=== PATIENT | male | born 1965 | race Caucasian/White ===

== ENCOUNTER 2016-09-27 19:32 | Inpatient (IN) ==
[2016-09-27] MEDS ORDERED: Ipratropium/Albuterol Neb 3 ML IH ONE (19:55)
[2016-09-27] MEDS ORDERED: Ondansetron 4 MG/2 ML VIAL IVP ONE (19:55)
--- NOTE | 2016-09-27 20:01 | Emergency Department Note ---
START Narrative - START START: I examined this patient and my medical decision-making was reviewed with the LICENSED PLUMBER/PA/Advanced Practice Nurse/Resident Physician. I agree with the documented findings, disposition and treatment plan as described except to the extent set forth below.
--- NOTE | 2016-09-27 20:05 | Emergency Department Note ---
Disposition Clinical Impression: Chronic incomplete quadriplegia, Hypoxia Aspiration pneumonia Qualifiers: Aspiration pneumonia type: unspecified Laterality: right Lung location: lower lobe of lung Qualified Code(s): J69.0 - Pneumonitis due to inhalation of food and vomit Disposition: Admitted As Inpatient Condition: Fair Referrals: Nati Giles DO [Primary Care Provider] - Forms: ED Satisfaction Letter General Adult HPI - General Chief complaint: ED Shortness of Breath/Dyspnea Stated complaint: tori Time Seen by Provider: 09/27/16 19:36 Source: patient, EMS Limitations: physical limitation Nursing Notes Reviewed: Yes Vital Signs Reviewed: Yes - History of Present Illness HPI Narrative: 50-year-old male who is an incomplete quadriplegic presents today after aspirating vomit. He has a diagnosis of cyclical vomiting. He says it happens every couple months where he goes in bouts of vomiting and has happened for years. He is treated with Zofran at home. Today when he began to vomit he had difficulty coordinating his swallowing and aspirated some of the vomitus. Since then he has had difficulty with breathing and states he has had noisy respirations. He also states he feels his throat is burning from the inhaled vomit. Past medical history includes hyperlipidemia, hypertension, cyclical vomiting, incomplete quadriplegia. Pain Scale: 0 Consistency: constant Improves with: nothing Worsens with: nothing Associated symptoms: Reports: denies other symptoms Treatments Prior to Arrival: none - Related Data Home Medications Medication Instructions Recorded Confirmed Acidophilus Probiotic Capsule 12/28/14 12/28/14 Baclofen [Lioresal] 20 mg PO TID 12/28/14 12/28/14 Benefiber 12/28/14 12/28/14 Cetirizine HCl [Zyrtec] 10 mg PO DAILY 12/28/14 12/28/14 Cholecalciferol (Vitamin D3) 5,000 unit PO DAILY 12/28/14 12/28/14 [Vitamin D] Enemeez Plus Mini Enema 12/28/14 12/28/14 Ferrous Gluconate 325 mg PO BID 12/28/14 12/28/14 Fluticasone Propionate Nasal 1 spray NS DAILY 12/28/14 12/28/14 [Flonase] Lidocaine Viscous Oral Soln 12/28/14 12/28/14 [Lidocaine Viscous Oral Soln] Morphine Sulfate SR (12 HR) [MS 15 mg PO Q8HR 12/28/14 12/28/14 Contin] Omeprazole [PriLOSEC] 20 mg PO BIDAC 12/28/14 12/28/14 Percocet 10-325 mg Tablet 12/28/14 12/28/14 Ranitidine HCl [Zantac] 150 mg PO BID 12/28/14 12/28/14 Allergies Allergy/AdvReac Type Severity Reaction Status Date / Time No Known Allergies Allergy Verified 09/27/16 19:57 All systems ED: reviewed and negative except as stated. Constitutional: Denies: fever Eyes: Denies: vision change ENT ED: Denies: throat pain Cardiovascular: Reports: dyspnea on exertion. Denies: chest pain Respiratory: Reports: cough, dyspnea Gastrointestinal: Denies: abdominal pain, nausea, vomiting Genitourinary: Denies: dysuria Musculoskeletal: Denies: back pain Neurological: Denies: headache Past Medical History - Past Medical History Medical history: Reports: atrial fibrillation, GERD, hyperlipidemia, hypertension, osteoporosis, other Surgical history: Reports: cholecystectomy, other (lateral internal sphincterotomy, skin and muscle flap to left buttock) Psychiatric history: Reports: no psych history - Social History Smoking Status: Former smoker Alcohol use: Reports: none Drug use: Reports: none Physical Exam - General Limitations: physical limitation General appearance: alert - Head Head exam: atraumatic - Eye Eye exam: Present: normal appearance, PERRL, EOMI - ENT ENT exam: normal exam, normal oropharynx - Neck Neck exam: Present: normal inspection - Chest Chest inspection: Present: normal inspection - Respiratory Respiratory exam: Present: other (Course rhonchi bilaterally. No distress or wheezes) - Cardiovascular Cardiovascular exam: Present: regular rate, normal rhythm - Abdominal Exam Abdominal exam: Present: soft, Non-Tender - Extremities Exam Extremities exam: Present: other (Contracted extremities) - Neurological Exam Neurological exam: Present: alert, oriented X3 - Skin Skin exam: Present: warm, dry Course Course Narrative: 50-year-old incomplete quadriplegic who aspirated vomit today. His vomiting is nonacute has been going on for years. He is mildly hypoxic on arrival at 92%. We will place him on oxygen and give him a breathing treatment. His blood pressure is in the 80s systolic. In looking through his prior blood pressures this is where he has always been. He also states that that is his normal blood pressure and he is not lightheaded or weak. This is likely his baseline but we will monitor this closely. - Reevaluation(s) Reevaluation #1: He has an elevated white count and chest x-ray shows a right lower lobe infiltrate. We will obtain blood cultures and start Unasyn and Flagyl. This been accepted for admission by Dr. Cook. His shortness of breath is significantly improved after breathing treatment. Vital Signs Temperature 97.9 F 09/27/16 19:38 Pulse Rate 91 09/27/16 19:38 Respiratory Rate 18 09/27/16 19:38 Blood Pressure 86/65 09/27/16 19:38 O2 Sat by Pulse Oximetry 92 09/27/16 19:38 Temperature 97.9 F 09/27/16 19:38 Pulse Rate 91 09/27/16 19:38 Respiratory Rate 16 09/27/16 20:23 Blood Pressure 100/81 09/27/16 20:23 O2 Sat by Pulse Oximetry 97 09/27/16 20:23 Oxygen Delivery Oxygen Delivery Room Air Medical Decision Making - Medical Records Medical records reviewed: Yes I reviewed the patient's medical records. - Lab Data Lab results reviewed: Yes I reviewed the patient's lab results. Result diagrams: 09/27/16 20:16 09/27/16 20:16 Lab Results 09/27/16 09/27/16 09/27/16 Range/Units 20:16 20:16 20:16 WBC 18.4 H (4.3-11.1) K/mcL RBC 5.10 (4.19-5.50) M/mcL Hgb 14.1 (12.9-16.9) g/dL Hct 44.4 (37.5-50.1) % MCV 87.1 (83.0-100.0) fL MCH 27.6 L (28.0-33.3) pg MCHC 31.8 (31.6-35.5) g/dL RDW 13.6 (11.5-14.5) % Plt Count 270 (140-400) K/mcL MPV 11.0 (9.4-12.4) fL Immature Gran % 0.4 (0-4) % Seg Neutrophils % 87.3 % Lymphocytes % 6.3 % Monocytes % 5.8 % Eosinophils % 0.0 % Basophils % 0.2 % Neutrophils # 16.0 H (1.6-8.9) K/mcL Lymphocytes # 1.2 (0.6-4.6) K/mcL Monocytes # 1.1 (0.0-1.3) K/mcL Eosinophils # 0.0 (0.0-0.6) K/mcL Basophils # 0.0 (0.0-0.2) K/mcL Sodium 139 (136-145) mEq/L Potassium 3.4 L (3.5-4.5) mEq/L Chloride 105 (98-109) mEq/L Carbon Dioxide 21 (19-29) mEq/L BUN 24 (8-26) mg/dL Creatinine 0.68 L (0.72-1.25) mg/dL Est GFR ( Amer) > 60 (> 60) Est GFR (Non-Af Amer) > 60 (> 60) BUN/Creatinine Ratio 35 H (6-26) Glucose 157 H (70-99) mg/dL Calculated Osmolality 295 (280-300) Lactic Acid 1.5 (0.5-2.2) mmol/L Calcium 9.1 (8.6-10.8) mg/dL - Radiology Data Radiology results reviewed: Yes I reviewed the patient's radiology results. - EKG Data EKG #1 EKG attestation: Yes I reviewed and interpreted this EKG. EKG shows normal: sinus rhythm Rate: normal [place]/QRS: left axis deviation When compared to previous EKG there are: no significant changes Interpretation: no acute changes, unchanged when compared to prior tracing (date )
[2016-09-27 20:23] LABS: Basophils % 0.2 %; Hematocrit 44.4 % (37.5-50.1); Hemoglobin 14.1 g/dL (12.9-16.9); Immature Granulocytes % 0.4 % (0-4); Lymphocytes # 1.2 K/mcL (0.6-4.6); Lymphocytes % 6.3 %; Mean Corpuscular HGB Conc 31.8 g/dL (31.6-35.5); Mean Corpuscular Hemoglobin 27.6 pg (28.0-33.3); Mean Corpuscular Volume 87.1 fL (83.0-100.0); Monocytes # 1.1 K/mcL (0.0-1.3); Monocytes % 5.8 %; Platelet Count 270 K/mcL (140-400); Red Cell Distribution Width 13.6 % (11.5-14.5); Segmented Neutrophils % 87.3 %
[2016-09-27 20:34] LABS: BUN/Creatinine Ratio 35 (6-26); Blood Urea Nitrogen 24 mg/dL (8-26); Calcium 9.1 mg/dL (8.6-10.8); Carbon Dioxide 21 mEq/L (19-29); Chloride 105 mEq/L (98-109); Glucose 157 mg/dL (70-99); Osmolality,Calculated 295 (280-300); Potassium 3.4 mEq/L (3.5-4.5); Sodium 139 mEq/L (136-145); eGFR For African Americans > 60 (> 60); eGFR For Non-African Americans > 60 (> 60)
[2016-09-27] MEDS ORDERED: Ampicillin/Sulbactam 3,000 MG in 0.9 % Sodium Chloride Mini Bag 100 ML IVPB ONE (21:08)
[2016-09-27] MEDS ORDERED: MetroNIDAZOLE 500 MG/100 ML 500 MG/100 ML BAG IVPB ONE (21:08)
[2016-09-27] MEDS ORDERED: *HR* HYDROmorphone (PF) 1 MG/ML SYRINGE IVP ONE (21:31)
[2016-09-27] MEDS ORDERED: Ondansetron 4 MG/2 ML VIAL IVP PRN (22:17)
[2016-09-27] MEDS ORDERED: Naloxone 0.4 MG/ML INJ IVP PRN (22:17)
[2016-09-27] MEDS ORDERED: Acetaminophen 325 MG TABLET PO PRN (22:17)
[2016-09-27] MEDS ORDERED: Ipratropium/Albuterol Neb 3 ML IH PRN (22:20)
--- NOTE | 2016-09-27 22:23 | Internal Med History&Physical ---
Date of Encounter: 09/27/16 Time of Encounter: 22:21 Assessment and Plan (1) Sepsis Current visit: Yes Status: Acute Sepsis secondary to aspiration pneumonia Continue Unasyn, aspiration precautions, blood cultures Continue IV fluids, nothing by mouth, speech pathology consult Protonix IV for GI prophylaxis and subcutaneous heparin for DVT prophylaxis. The patient will be admitted as inpatient, expected to stay more than 2 midnights. Full code. Time spent on this admission 40 minutes High risk of aspiration Qualifiers: Sepsis type: sepsis due to unspecified organism Qualified Code(s): A41.9 - Sepsis, unspecified organism (2) Hypokalemia Current visit: Yes Status: Acute Add potassium to the IV fluids and replete as needed (3) Dehydration Current visit: Yes Status: Acute (4) Intractable vomiting Current visit: Yes Status: Acute Continue Zofran as needed Qualifiers: Vomiting type: cyclical vomiting Nausea presence: with nausea Qualified Code(s): G43.A1 - Cyclical vomiting, intractable (5) Aspiration pneumonia Current visit: Yes Status: Acute Qualifiers: Aspiration pneumonia type: unspecified Laterality: right Lung location: lower lobe of lung Qualified Code(s): J69.0 - Pneumonitis due to inhalation of food and vomit (6) Chronic incomplete quadriplegia Current visit: Yes Status: Acute Internal Medicine - H&P: HPI Chief complaint: Difficulty breathing Admitted From: Emergency Dept History of present illness: Mr. Sawyer is a 50 year old male with a past medical history of quadriplegia secondary to a C6 fracture when he was 12 years old, recurrent UTIs, cyclic vomiting, who presented to the emergency room complaining of shortness of breath as he started vomiting profusely yesterday morning and apparently aspirated. Chest x-ray shows a right lower lobe opacity compatible with pneumonia. Patient says she has been having difficulty coordinating his swallowing and has a vomited constantly since yesterday. His blood pressure was 86/65 but apparently has chronic hypotension. At the time of the examination his heart rate was 122 his blood pressure was in the 120s. His white blood cell count is 18.4 glucose is 157 and potassium is 3.4. Patient denies any other complaint. Feels extremely weak. Denies any sick contacts, has not been hospitalized in the past 90 days. Was started on Unasyn at the emergency room with metronidazole Past Med Surg Social Fam HX - Past Medical History Medical history: atrial fibrillation (Not on anticoagulation), GERD, hyperlipidemia, hypertension, osteoporosis, other (Dysreflexia, sacral decubitus ulcer, recurrent UTI with pansensitive Escherichia coli, quadriplegia with a C6 fracture when he was 12 years old status post cervical stabilization surgery. 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, bladder surgery, cervical stabilization surgery) - Social History Smoking Status: Former smoker Alcohol use: none Drug use: none - Additional Family History Additional family history: Father with hypertension and diabetes Internal Medicine - H&P: Meds Acidophilus Probiotic Capsule 12/28/14 [History] Baclofen [Lioresal] 20 mg PO TID 12/28/14 [History] Benefiber 12/28/14 [History] Cetirizine HCl [Zyrtec] 10 mg PO DAILY 12/28/14 [History] Cholecalciferol (Vitamin D3) [Vitamin D] 5,000 unit PO DAILY 12/28/14 [History] Enemeez Plus Mini Enema 12/28/14 [History] Ferrous Gluconate 325 mg PO BID 12/28/14 [History] Fluticasone Propionate Nasal [Flonase] 1 spray NS DAILY 12/28/14 [History] Lidocaine Viscous Oral Soln [Lidocaine Viscous Oral Soln] 12/28/14 [History] Morphine Sulfate SR (12 HR) [MS Contin] 15 mg PO Q8HR 12/28/14 [History] Omeprazole [PriLOSEC] 20 mg PO BIDAC 12/28/14 [History] Percocet 10-325 mg Tablet 12/28/14 [History] Ranitidine HCl [Zantac] 150 mg PO BID 12/28/14 [History] Allergies No Known Allergies Allergy (Verified 09/27/16 19:57) All Systems PM: A 10-system review of systems was performed and is negative for pertinent findings except as documented above in the HPI. Review of systems: Feels short of breath, other systems out of the 10th reviewed were negative - Constitutional Vitals: Temp Pulse Resp BP Pulse Ox 97.9 F 91 16 100/81 97 09/27/16 19:38 09/27/16 19:38 09/27/16 20:23 09/27/16 20:23 09/27/16 20:23 General appearance: Present: A&O X 3 - Head Head exam: Present: atraumatic, normocephalic - Eye Eye exam: Present: PERRL, conjuntiva pink, sclera anicteric Pupils: Present: PERRL - Neck Neck exam general surgery: Present: supple, trachea midline. Absent: lymphadenopathy - Respiratory Respiratory exam: Present: CTAB, rales (Fine crackles at the right base, no wheezing). Absent: accessory muscle use, rhonchi, wheezes - Cardiovascular Cardiovascular exam: Present: RRR, +S1, +S2, tachycardia. Absent: diastolic murmur, gallop, rubs, systolic murmur - GI/Abdominal GI/Abdominal exam: Present: distended, normal bowel sounds, soft, no peritoneal signs. Absent: tenderness - Extremities Exam Extremities exam: Present: warm, radial pulses palpable and symetrical. Absent : calf tenderness, cyanotic, pedal edema Additional comments: Has partial movement of the upper extremities, lower extremities are atrophied - Neurological Exam Neurological exam: Present: CN II-XII intact, oriented X3. Absent: no focal deficits, pronater drift, facial droop, speech deficit - Skin Skin exam: Present: dry, intact Internal Med - H&P Results - Labs CBC & Chem 7: 09/27/16 20:16 09/27/16 20:16 Labs: Short CBC 09/27/16 Range/Units 20:16 WBC 18.4 H (4.3-11.1) K/mcL Hgb 14.1 (12.9-16.9) g/dL Hct 44.4 (37.5-50.1) % Plt Count 270 (140-400) K/mcL Neutrophils # 16.0 H (1.6-8.9) K/mcL BMP 09/27/16 20:16 Sodium 139 Potassium 3.4 L Chloride 105 Carbon Dioxide 21 BUN 24 Creatinine 0.68 L Glucose 157 H Calcium 9.1 - Impressions ITS Impressions Chest X-Ray 09/27/16 19:56 IMPRESSION: Right lower lobe airspace opacity compatible with pneumonia. D/ / Marcus Guthrie MD / Marcus Guthrie MD Interpreting Provider: Marcus Guthrie MD
[2016-09-27] MEDS ORDERED: 0.9 % Sodium Chloride 1,000 ML IVC SCH (22:30)
[2016-09-27] MEDS ORDERED: Ampicillin/Sulbactam 1,500 MG in 0.9 % Sodium Chloride Mini Bag 100 ML IVPB SCH (23:00)
[2016-09-27] MEDS: *HR* Heparin 5,000 UNIT/ML VIAL SQ SCH (23:57)
[2016-09-27] MEDS: Pantoprazole 40 MG VIAL IVP SCH (23:57)
[2016-09-28] MEDS: *HR* Morphine Sulfate SR (12 HR) 15 MG TABLET.ER PO SCH ×2 (00:15→09:20)
[2016-09-28] MEDS: Ampicillin/Sulbactam 1,500 MG in 0.9 % Sodium Chloride Mini Bag 100 ML IVPB SCH ×4 (04:35→22:17)
[2016-09-28] MEDS: *HR* Morphine 2 MG/ML SYRINGE IVP PRN ×2 (05:12→11:44)
[2016-09-28 05:30] LABS: Hematocrit 43.3 % (37.5-50.1); Hemoglobin 13.5 g/dL (12.9-16.9); Mean Corpuscular HGB Conc 31.2 g/dL (31.6-35.5); Mean Corpuscular Hemoglobin 27.2 pg (28.0-33.3); Mean Corpuscular Volume 87.3 fL (83.0-100.0); Mean Platelet Volume 11.2 fL (9.4-12.4); Platelet Count 280 K/mcL (140-400); Red Blood Count 4.96 M/mcL (4.19-5.50); Red Cell Distribution Width 13.7 % (11.5-14.5)
[2016-09-28 05:39] LABS: BUN/Creatinine Ratio 32 (6-26); Blood Urea Nitrogen 19 mg/dL (8-26); Calcium 8.7 mg/dL (8.6-10.8); Carbon Dioxide 22 mEq/L (19-29); Chloride 108 mEq/L (98-109); Glucose 134 mg/dL (70-99); Osmolality,Calculated 296 (280-300); Potassium 3.4 mEq/L (3.5-4.5); Sodium 141 mEq/L (136-145); eGFR For African Americans > 60 (> 60); eGFR For Non-African Americans > 60 (> 60)
[2016-09-28] MEDS: Pantoprazole 40 MG VIAL IVP SCH (08:21)
[2016-09-28] MEDS: Baclofen 10 MG TABLET PO SCH ×3 (09:20→22:17)
[2016-09-28] MEDS: *HR* Heparin 5,000 UNIT/ML VIAL SQ SCH ×3 (10:16→22:26)
--- NOTE | 2016-09-28 11:38 | Internal Med Progress Note ---
Date of Encounter: 09/28/16 Time of Encounter: 07:50 - Assessment and plan (1) Aspiration pneumonia Current Visit: Yes Status: Acute Assessment and plan: on Unasyn. WBC count is slightly better compared to last night. We will continue IV antibiotics. Moderate risk for complications. Qualifiers: Aspiration pneumonia type: unspecified Laterality: right Lung location: lower lobe of lung Qualified Code(s): J69.0 - Pneumonitis due to inhalation of food and vomit (2) Chronic incomplete quadriplegia Current Visit: Yes Status: Chronic Assessment and plan: Continue baclofen for contractures. Decubitus ulcer prophylaxis. (3) Dehydration Current Visit: Yes Status: Acute Assessment and plan: IV hydration. (4) Hypokalemia Current Visit: Yes Status: Acute Assessment and plan: Potassium remains 3.4. We will continue to replete. (5) Intractable vomiting Current Visit: Yes Status: Acute Assessment and plan: Patient remains nauseated. Continue Zofran. We will add Phenergan with nausea is not controlled. Qualifiers: Vomiting type: cyclical vomiting Nausea presence: with nausea Qualified Code(s): G43.A1 - Cyclical vomiting, intractable (6) Sepsis Current Visit: Yes Status: Acute Assessment and plan: From aspiration pneumonia. Improving clinically. Lactic acid is normal. Follow culture results. Qualifiers: Sepsis type: sepsis due to unspecified organism Qualified Code(s): A41.9 - Sepsis, unspecified organism - Subjective Interval history: Patient is awake and alert. Feels much better today. Denies any chest pain. Shortness of breath is improving. No fever overnight. - Constitutional Vitals: Temp Pulse Resp BP Pulse Ox 98.5 F 73 18 95/61 96 09/28/16 11:11 09/28/16 11:11 09/28/16 11:11 09/28/16 11:11 09/28/16 11:11 General appearance: Present: cooperative, mild distress, A&O X 3, answers questions appropriately - Eye Eye exam: Present: EOMI, PERRL, conjuntiva pink, sclera anicteric - Neck Neck exam general surgery: Present: supple, trachea midline. Absent: lymphadenopathy - Respiratory Respiratory exam: Present: CTAB. Absent: accessory muscle use, rales, rhonchi, wheezes - Cardiovascular Cardiovascular exam: Present: RRR, +S1, +S2. Absent: diastolic murmur, gallop, rubs, systolic murmur - GI/Abdominal GI/Abdominal exam: Present: normal bowel sounds, soft, no peritoneal signs. Absent: distended, tenderness - Extremities Exam Extremities exam: Present: warm, radial pulses palpable and symetrical. Absent : calf tenderness, cyanotic, pedal edema - Neurological Exam Neurological exam: Present: alert, oriented X3. Absent: facial droop, speech deficit Additional comments: Quadriplegia - Skin Skin exam: Present: dry, intact Internal Medicine: Result - Labs CBC & Chem 7: 09/28/16 04:50 09/28/16 04:50 Labs: Short CBC 09/28/16 Range/Units 04:50 WBC 17.4 H (4.3-11.1) K/mcL Hgb 13.5 (12.9-16.9) g/dL Hct 43.3 (37.5-50.1) % Plt Count 280 (140-400) K/mcL BMP 09/28/16 04:50 Sodium 141 Potassium 3.4 L Chloride 108 Carbon Dioxide 22 BUN 19 Creatinine 0.59 L Glucose 134 H Calcium 8.7 Consult Discharge Plan - Plan Referrals: Nati Giles DO [Primary Care Provider] - (web request..) - Attending Attestation This document has been at least partially created by [employer] recognition technology by Dr. Higginbotham. Errors in grammar, wording or other phrases may exist. If errors are found after the documentation is signed, they will be addressed individually in the addendum section of this document when appropriate.
[2016-09-28] MEDS: Ondansetron 4 MG/2 ML VIAL IVP PRN ×2 (11:50→22:25)
[2016-09-28] MEDS ORDERED: *HR* Promethazine 25 MG/ML VIAL IVP PRN (14:56)
[2016-09-28] MEDS: *HR* OxyCODONE/APAP 10/325 TABLET PO PRN ×2 (15:47→22:26)
[2016-09-28] MEDS ORDERED: Temazepam 15 MG CAPSULE PO SCH (23:45)
[2016-09-29] MEDS: Ampicillin/Sulbactam 1,500 MG in 0.9 % Sodium Chloride Mini Bag 100 ML IVPB SCH (03:38)
[2016-09-29] MEDS: *HR* OxyCODONE/APAP 10/325 TABLET PO PRN ×2 (03:44→08:39)
[2016-09-29 04:26] LABS: Basophils % 0.3 %; Hematocrit 34.3 % (37.5-50.1); Immature Granulocytes % 0.2 % (0-4); Lymphocytes # 2.5 K/mcL (0.6-4.6); Mean Corpuscular Hemoglobin 27.2 pg (28.0-33.3); Mean Corpuscular Volume 90.5 fL (83.0-100.0); Mean Platelet Volume 10.7 fL (9.4-12.4); Monocytes # 0.7 K/mcL (0.0-1.3); Monocytes % 7.8 %; Platelet Count 203 K/mcL (140-400); Red Blood Count 3.79 M/mcL (4.19-5.50); Red Cell Distribution Width 13.9 % (11.5-14.5); Segmented Neutrophils % 64.7 %
[2016-09-29 04:27] LABS: Hemoglobin 10.3 g/dL (12.9-16.9)
[2016-09-29 04:42] LABS: BUN/Creatinine Ratio 29 (6-26); Blood Urea Nitrogen 14 mg/dL (8-26); Calcium 7.9 mg/dL (8.6-10.8); Carbon Dioxide 26 mEq/L (19-29); Chloride 111 mEq/L (98-109); Glucose 94 mg/dL (70-99); Osmolality,Calculated 292 (280-300); Potassium 3.7 mEq/L (3.5-4.5); Sodium 141 mEq/L (136-145); eGFR For African Americans > 60 (> 60); eGFR For Non-African Americans > 60 (> 60)
[2016-09-29 07:47] VITALS: BP 91/53
[2016-09-29] MEDS ORDERED: *HR* Promethazine 25 MG/ML VIAL IVP PRN (08:30)
[2016-09-29] MEDS: Pantoprazole 40 MG VIAL IVP SCH (08:37)
[2016-09-29] MEDS: Baclofen 10 MG TABLET PO SCH (08:38)
[2016-09-29] MEDS: *HR* Heparin 5,000 UNIT/ML VIAL SQ SCH (08:38)
--- NOTE | 2016-09-29 09:26 | Discharge Summary ---
Date of Encounter: 09/29/16 Time of Encounter: 08:10 - Discharge Diagnosis (1) Aspiration pneumonia Priority: Primary Status: Acute Qualifiers: Aspiration pneumonia type: unspecified Laterality: right Lung location: lower lobe of lung Qualified Code(s): J69.0 - Pneumonitis due to inhalation of food and vomit (2) Chronic incomplete quadriplegia Priority: Secondary Status: Chronic (3) Dehydration Priority: Secondary Status: Acute (4) Hypokalemia Priority: Secondary Status: Acute (5) Intractable vomiting Priority: Secondary Status: Acute Qualifiers: Vomiting type: cyclical vomiting Nausea presence: with nausea Qualified Code(s): G43.A1 - Cyclical vomiting, intractable (6) Sepsis Priority: Secondary Status: Acute Qualifiers: Sepsis type: sepsis due to unspecified organism Qualified Code(s): A41.9 - Sepsis, unspecified organism (7) Sacral decubitus ulcer, stage II Priority: Secondary Status: Chronic Comments: Present on admission. Wound care provided - Discharge Medications Prescriptions: Amoxicillin/Clavulanate [Augmentin] 875 mg PO BIDWM #20 tablet Lactobacillus [Culturelle] 1 each PO BID #20 cap.sprink Home Medications: Baclofen [Lioresal] 20 mg PO TID 12/28/14 [History] Cetirizine HCl [Zyrtec] 10 mg PO DAILY 12/28/14 [History] Cholecalciferol (Vitamin D3) [Vitamin D3] 5,000 unit PO DAILY 12/28/14 [History] Docusate Sodium/Benzocaine [Enemeez Plus Mini Enema] 5 ml RC MOTH 12/28/14 [ History] Ferrous Gluconate 325 mg PO BID 12/28/14 [History] Fluticasone Propionate Nasal [Flonase] 1 spray NS DAILY PRN 12/28/14 [History] Lidocaine Viscous Oral Soln 15 ml PO 2XW 12/28/14 [History] Morphine Sulfate SR (12 HR) [MS Contin] 15 mg PO Q8HR 12/28/14 [History] Omeprazole [PriLOSEC] 20 mg PO BIDAC 12/28/14 [History] Oxycodone HCl/Acetaminophen [Percocet 10-325 mg Tablet] 1 tab PO QID 12/28/14 [ History] Ranitidine HCl [Zantac] 150 mg PO BID 12/28/14 [History] Wheat Dextrin [Benefiber] 1 pack PO SUWE 12/28/14 [History] Docusate Sodium [Dok] 200 mg PO BID 09/28/16 [History] Simvastatin [Zocor] 20 mg PO HS 09/28/16 [History] Temazepam [Restoril] 30 mg PO HS 09/28/16 [History] diazePAM [Valium] 2 mg PO HS 09/28/16 [History] Amoxicillin/Clavulanate [Augmentin] 875 mg PO BIDWM #20 tablet 09/29/16 [Rx] Lactobacillus [Culturelle] 1 each PO BID #20 cap.sprink 09/29/16 [Rx] Allergies/Adverse Reactions: Allergies No Known Allergies Allergy (Verified 09/27/16 19:57) Date of admission: 09/27/16 22:32 Primary care physician: Nati Giles DO Consults: 09/28/16 09:30 Consult to Wound Care [CONS] Routine Reason for Consult: pressure injury Call Completed: No Discharging clinician: Lenny Higginbotham Anticipated date of discharge: 09/29/16 - Patient Status Disposition: Home Health Service Condition: Good Functional capacity at discharge: wheelchair bound Overall status at discharge: patient is progressing back to baseline - Discharge Instructions Instructions: Amoxicillin/Clavulanate Potassium (By mouth), Probiotic (By mouth ), Sepsis (DC), Pneumonia (DC) Follow Up With: Nati Giles DO [Primary Care Provider] - (web request..) - Diet and Activity Activity: increase activity as tolerated Diet: regular diet Hospital course: Mr. Sawyer is a 50 year old male with history of chronic incomplete quadriplegia was admitted here with aspiration pneumonia and sepsis. Patient had been having intractable nausea and vomiting and then developed aspiration pneumonia. He was treated with IV Unasyn with significant improvement in his symptoms. His nausea and vomiting has also subsided. He was evaluated by speech therapy and recommended a regular diet. His leukocytosis has resolved. Sepsis has also resolved. Patient has chronic hypotension without any tachycardia. He is not requiring any O2 supplementation. He will be discharged on Augmentin to complete treatment course due to his good response to Unasyn. - Time Spent with Patient Total time spent providing and/or coordinating discharge services: Less than 30 minutes (25 min) - Constitutional Vitals: Temp Pulse Resp BP Pulse Ox 98.5 F 70 15 91/53 94 09/29/16 07:00 09/29/16 07:00 09/29/16 07:00 09/29/16 07:00 09/29/16 07:00 General appearance: Present: cooperative, A&O X 3, no acute distress, answers questions appropriately - Neck Neck exam general surgery: Present: supple, trachea midline. Absent: lymphadenopathy - Respiratory Respiratory exam: Absent: accessory muscle use, rales, rhonchi, wheezes Additional comments: Coarse breath sounds bilaterally - Cardiovascular Cardiovascular exam: Present: RRR, +S1, +S2. Absent: diastolic murmur, gallop, rubs, systolic murmur - Neurological Exam Neurological exam: Present: alert, oriented X3. Absent: facial droop, speech deficit Additional comments: Decreased strength in all 4 extremities with contractures - Attending Attestation This document has been at least partially created by [email or web address] voice recognition technology by Dr. Higginbotham. Errors in grammar, wording or other phrases may exist. If errors are found after the documentation is signed, they will be addressed individually in the addendum section of this document when appropriate.
--- NOTE | 2016-09-29 09:29 | Physician Discharge Referral ---
Home Health/Hosp Referral Info Transfer to: Home Health Provider in Charge Post Discharge: PCP - Diagnosis (1) Aspiration pneumonia Priority: Primary Status: Acute (2) Chronic incomplete quadriplegia Priority: Secondary Status: Chronic (3) Dehydration Priority: Secondary Status: Acute (4) Hypokalemia Priority: Secondary Status: Acute (5) Intractable vomiting Priority: Secondary Status: Acute (6) Sepsis Priority: Secondary Status: Acute - Respiratory Orders Smoking Cessation: Smoking cessation has been advised. For more information, call the [place] Tobacco Quit Line at 0-952-NUEA-NOW. - Diet/Nutrition Diet/Nutrition Orders: Regular - Activity Activity Orders: Chair - Services Needed Following services are medically necessary services: Nursing, Home Health Aide, Physical Therapy, Occupational Therapy - Transfer Medications Prescriptions: Amoxicillin/Clavulanate [Augmentin] 875 mg PO BIDWM #20 tablet Lactobacillus [Culturelle] 1 each PO BID #20 cap.sprink Home Medications: Baclofen [Lioresal] 20 mg PO TID 12/28/14 [History] Cetirizine HCl [Zyrtec] 10 mg PO DAILY 12/28/14 [History] Cholecalciferol (Vitamin D3) [Vitamin D3] 5,000 unit PO DAILY 12/28/14 [History] Docusate Sodium/Benzocaine [Enemeez Plus Mini Enema] 5 ml RC MOTH 12/28/14 [ History] Ferrous Gluconate 325 mg PO BID 12/28/14 [History] Fluticasone Propionate Nasal [Flonase] 1 spray NS DAILY PRN 12/28/14 [History] Lidocaine Viscous Oral Soln 15 ml PO 2XW 12/28/14 [History] Morphine Sulfate SR (12 HR) [MS Contin] 15 mg PO Q8HR 12/28/14 [History] Omeprazole [PriLOSEC] 20 mg PO BIDAC 12/28/14 [History] Oxycodone HCl/Acetaminophen [Percocet 10-325 mg Tablet] 1 tab PO QID 12/28/14 [ History] Ranitidine HCl [Zantac] 150 mg PO BID 12/28/14 [History] Wheat Dextrin [Benefiber] 1 pack PO SUWE 12/28/14 [History] Docusate Sodium [Dok] 200 mg PO BID 09/28/16 [History] Simvastatin [Zocor] 20 mg PO HS 09/28/16 [History] Temazepam [Restoril] 30 mg PO HS 09/28/16 [History] diazePAM [Valium] 2 mg PO HS 09/28/16 [History] Amoxicillin/Clavulanate [Augmentin] 875 mg PO BIDWM #20 tablet 09/29/16 [Rx] Lactobacillus [Culturelle] 1 each PO BID #20 cap.sprink 09/29/16 [Rx] Allergies/Adverse Reactions: Allergies No Known Allergies Allergy (Verified 09/27/16 19:57) Certification: Further, I certify that my clinical findings support that this patient is homebound (i.e. absences from home require considerable and taxing effort and are for medical reasons or confucianism services or infrequently or short duration when for other reasons) because: Homebound Reason: Patient requires assistance of a person or device to safely leave home, Leaving home requires considerable and taxing effort due to condition Attestation: My signature below is to certify that this patient is under my care and that I, or nurse practitioner, or a physician's case management assistant working with me, has a face-to -face encounter with this patient.
--- NOTE | 2016-09-29 09:52 | Electrocardiograph Report ---
[place] [id number] Test Date: 2016-09-27 Pat Name: Junior Sawyer Department: [id number] Room: 2A14 Gender: M Newspaper Correspondent: : [id number] Requested By: Ankur Messina Order Number: [id number] Reading MD: Mega Zamudio MD Measurements Intervals [place] Rate: 87 P: 47 [place]: 145 QRS: -59 QRSD: 90 T: 68 QT: 370 QTc: 414 Interpretive Statements SINUS RHYTHM LEFT ANTERIOR FASCICULAR BLOCK Electronically Signed On 09-29-2016 9:50:34 EDT by Mega Zamudio MD
[2016-09-29] MEDS ORDERED: Ipratropium/Albuterol Neb 3 ML IH SCH (12:00)
== END 2016-09-29 10:40 | disposition home health service (06) | DRG 720 ==
LOC: EMEROO 19:32 → 2ANU 22:32
PROVIDERS: ADMIT Internal Medicine; ATTEND Internal Medicine

== ENCOUNTER 2020-02-16 12:27 | Inpatient (IN) ==
[2020-02-16] MEDS ORDERED: CeFAZolin Syr 2,000MG/20 ML 2,000 MG/20 ML SYRINGE IVPB ONE (13:39)
[2020-02-16] MEDS ORDERED: *HR* OxyCODONE Immed Rel 5 MG TABLET PO PRN (13:53)
[2020-02-16] MEDS ORDERED: Acetaminophen IV 1,000 MG/100 ML INFUS..BTL IVPB ONE (13:53)
[2020-02-16] MEDS ORDERED: *HR* HYDROmorphone (PF) 1 MG/ML SYRINGE IVP PRN (13:53)
[2020-02-16] MEDS ORDERED: *HR* Labetalol 20 MG/4 ML SYRINGE IVP PRN (13:53)
[2020-02-16] MEDS ORDERED: Famotidine 20 MG/2 ML VIAL IVP ONE (13:53)
[2020-02-16] MEDS ORDERED: Pregabalin 75 MG CAPSULE PO ONE (13:53)
[2020-02-16] MEDS ORDERED: *HR* HYDROmorphone 2 MG TABLET PO PRN (13:53)
[2020-02-16 14:04] LABS: Adenovirus Not Detected (Not Detect); Bordetella Pertussis Not Detected (Not Detect); Chlamydophila pneumoniae Not Detected (Not Detect); Coronavirus 229E Not Detected (Not Detect); Coronavirus HKU1 Not Detected (Not Detect); Coronavirus NL63 Not Detected (Not Detect); Coronavirus OC43 Not Detected (Not Detect); Human Metapneumovirus Not Detected (Not Detect); Human Rhinovirus/Enterovirus Not Detected (Not Detect); Influenza A Subtype 2009 H1 Not Detected (Not Detect); Influenza B Not Detected (Not Detect); Mycoplasma pneumoniae Not Detected (Not Detect); Parainfluenza Virus 1 Not Detected (Not Detect); Parainfluenza Virus 2 Not Detected (Not Detect); Parainfluenza Virus 3 Not Detected (Not Detect); Parainfluenza Virus 4 Not Detected (Not Detect); Respiratory Syncytial Virus Not Detected (Not Detect); SARS-CoV-2 Not Detected (Not Detect)
[2020-02-16] MEDS ORDERED: *HR* FentaNYL (PF) 100 MCG/2 ML VIAL ONE ×2 (14:40→16:20)
[2020-02-16] MEDS ORDERED: *HR* Propofol 200 MG/20 ML VIAL IVP ONE (14:40)
[2020-02-16] MEDS ORDERED: *HR* Succinylcholine 200 MG/10 ML VIAL IVP ONE (14:40)
[2020-02-16] MEDS ORDERED: Lidocaine -MPF 2% 2 ML VIAL ONE (14:40)
[2020-02-16] MEDS ORDERED: *HR* Midazolam HCl 2 MG/2 ML VIAL ONE (14:40)
[2020-02-16] MEDS ORDERED: Dexamethasone 4 MG/ML VIAL ONE (14:40)
[2020-02-16] MEDS ORDERED: *HR* Rocuronium Bromide 50 MG/5 ML VIAL ONE (14:40)
[2020-02-16] MEDS ORDERED: Ondansetron 4 MG/2 ML VIAL ONE (14:40)
[2020-02-16] MEDS ORDERED: Lidocaine HCL 4 ML Topical Solution (Laryng-O-Jet Kit Sterile Pak) TP ONE (14:41)
[2020-02-16] MEDS ORDERED: Ethanol\\Acetic Acid\\Na Ace\\Ben 1,000 ML IRRIG.SOLN IR ONE (14:42)
[2020-02-16] MEDS ORDERED: Vancomycin 1,000 MG VIAL ONE (14:42)
[2020-02-16] MEDS ORDERED: Ropivacaine/PF 0.5% 30 ML VIAL ONE (14:45)
[2020-02-16] MEDS: Ringers Solution, Lactated 1,000 ML IVC SCH ×2 (14:49→18:18)
[2020-02-16] MEDS ORDERED: NiCARdipine 2.5 MG/10 ML Syringe IVPB ONE (15:36)
[2020-02-16] MEDS ORDERED: Albumin Human 5% 12.5 GM/250 ML IV.SOLN ONE (15:36)
[2020-02-16] MEDS ORDERED: EPHEDrine 50 MG/ML VIAL ONE (16:18)
[2020-02-16] MEDS ORDERED: Povidone-Iodine 45 ML, Sodium Chloride IRRigation 1,000 ML IR ONE (16:20)
[2020-02-16] MEDS ORDERED: *HR* Enoxaparin 30 MG/0.3 ML SYRINGE SQ SCH (18:00)
[2020-02-16 18:26] LABS: Hematocrit 36.1 % (37.5-50.1); Hemoglobin 11.3 g/dL (12.9-16.9)
[2020-02-16] MEDS ORDERED: Ondansetron 4 MG/2 ML VIAL IVP PRN (19:18)
[2020-02-16] MEDS ORDERED: Ringers Solution, Lactated 1,000 ML IVC SCH (19:18)
[2020-02-16] MEDS ORDERED: MOM Conc 10 ML UD.LIQ PO PRN (19:18)
[2020-02-16] MEDS ORDERED: Dextrose Gel 15 GM/37.5 ML TUBE PO PRN ×2 (19:18)
[2020-02-16] MEDS ORDERED: *HR* OxyCODONE/APAP 5/325 TABLET PO PRN (19:18)
[2020-02-16] MEDS ORDERED: D5% in Water 1,000 ML IVC PRN (19:18)
[2020-02-16] MEDS ORDERED: Naloxone 0.4 MG/ML INJ IVP PRN (19:18)
[2020-02-16] MEDS ORDERED: Sennosides 8.6 MG TABLET PO PRN (19:18)
[2020-02-16] MEDS ORDERED: *HR* Dextrose 50 % in Water (Vial) 50 ML VIAL IVP PRN (19:18)
[2020-02-16] MEDS: Insulin LISPRO 300 UNITS/3 ML VIAL SQ SCH (20:33)
[2020-02-16] MEDS ORDERED: Insulin LISPRO 300 UNITS/3 ML VIAL SQ SCH (21:00)
[2020-02-16] MEDS ORDERED: Temazepam 15 MG CAPSULE PO SCH (21:15)
[2020-02-16] MEDS: *HR* OxyCODONE Immed Rel 5 MG TABLET PO PRN (22:08)
[2020-02-16] MEDS: Baclofen 10 MG TABLET PO SCH (22:09)
[2020-02-17] MEDS: CeFAZolin 2 GM/120 ML BAG IVPB SCH ×2 (00:27→07:59)
[2020-02-17 05:41] LABS: Hematocrit 35.3 % (37.5-50.1); Hemoglobin 10.6 g/dL (12.9-16.9)
[2020-02-17] MEDS ORDERED: *HR* Enoxaparin 30 MG/0.3 ML SYRINGE SQ SCH (06:00)
[2020-02-17 06:03] LABS: BUN/Creatinine Ratio 33 (6-26); Blood Urea Nitrogen 17 mg/dL (6-20); Calcium 8.4 mg/dL (8.6-10.3); Carbon Dioxide 27 mEq/L (23-29); Chloride 103 mEq/L (98-107); Glucose 159 mg/dL (70-105); Osmolality,Calculated 291 (280-300); Sodium 138 mEq/L (136-145); eGFR For African Americans > 60 (> 60); eGFR For Non-African Americans > 60 (> 60)
[2020-02-17 07:10] VITALS: BP 130/52
[2020-02-17] MEDS: *HR* OxyCODONE Immed Rel 5 MG TABLET PO PRN ×2 (07:38→11:41)
[2020-02-17] MEDS: Baclofen 10 MG TABLET PO SCH (07:38)
[2020-02-17] MEDS: Insulin LISPRO 300 UNITS/3 ML VIAL SQ SCH (07:53)
[2020-02-17] MEDS ORDERED: FLU Vac QV 20-21 (6Month+)/PF 0.5 ML SYRINGE IM ONE (09:33)
== END 2020-02-17 12:05 | disposition home health service (06) | DRG 322 ==
LOC: SAMDAY 12:27 → 3NENU 19:01
PROVIDERS: ADMIT Orthopaedic Surgery; ATTEND Orthopaedic Surgery